=== PATIENT | male | born 1975 | race Caucasian/White ===

== ENCOUNTER → 2017-01-01 | Outpatient (CLI) | payer MEDICARE, OTHER ==
[~2017-01-01] MED LIST: AMBIEN5 MG ORAL; BENZTROPINE MESY1 MG PO; BUPROPION XL300 MG ORAL; DEPAKOTE250 MG PO; HALOPERIDOL1 MG ORAL; HYDROCHLOROTHIA25 MG ORAL; INVEGA SUS234 MG/1.5 IM; LATUDA80 MG PO; LEXAPRO10 MG ORAL; LIPITOR20 MG ORAL; LITHIUM CARBON300 MG ORAL; LORAZEPAM1 MG ORAL; MIRALAX17 G2 ORAL; PROVENTIL HFA6.7 G1 IH; SAPHRIS5 MG SL; SEROQUEL XR400 MG ORAL; SEROQUEL200 MG ORAL; TOPIRAMATE100 MG ORAL; TOPIRAMATE25 MG ORAL; VENLAFAXINE HCL25 MG ORAL; VITAMIN D-32000 UNI1 PO; VRAYLAR1.5 MG PO; WELLBUTRIN XL150 MG ORAL; WELLBUTRIN75 MG ORAL; luvox PO
== END | disposition home or self-care (01) ==
LOC: LAB 09:48
DX: F25.9 Schizoaffective disorder, unspecified (principal)
CPT/HCPCS: 36415; 80164